=== PATIENT | male | born 1995 | race African-American/Black ===

== ENCOUNTER 2016-06-11 12:22 | Emergency (ER) | payer BC ==
[~2016-06-11] VITALS: Ht 172.7 cm; Wt 88.2 kg
[2016-06-11 12:24] VITALS: BP 106/69; PULSE 116; RESP 16; TEMP 102.8; O2SAT 98
--- NOTE | 2016-06-11 12:41 | PD ---
HPI Chief Complaint: ENT Complaint Time Seen by Provider: 12:40 Travel History International Travel<30 days: No Contact w/Intl Traveler<30days: No Traveled to known affect area: No History of Present Illness HPI 20-year-old male with history of asthma presents to the emergency department for evaluation of sore throat, fever, chills, body ache worsening over the last 3 days. Patient states that he started with a sore throat and had a headache. He took Tylenol and 600 mg of ibuprofen yesterday and that seemed to help with his fever. He was concerned because he woke up today and had a fever again. He has not taken any antipyretics today. No nausea or vomiting. No diarrhea. Intermittent cough that is nonproductive. No photophobia. No nuchal rigidity. No other symptoms to report at this time. [facility] Past Medical History Asthma: Yes Respiratory: Yes (ASTHMA) Social History Alcohol Use: No Tobacco Use: No Substance Use: No Allergies-Medications (Allergen,Severity, Reaction): Coded Allergies: No Known Allergies (Unverified , 06/11/16) Reported Meds & Prescriptions Reported Meds & Active Scripts Active No Active Prescriptions or Reported Medications Review of Systems Except as stated in HPI: all other systems reviewed are Neg Physical Exam Narrative GENERAL: Well-nourished male patient, ambulatory no acute distress SKIN: Warm and dry. HEAD: Atraumatic. Normocephalic. EYES: Pupils equal and round. No scleral icterus. No injection or drainage. ENT: No nasal bleeding or discharge. Drinks is moderate erythema, edema, without exudates. Airway is patent. Mucous membranes pink and moist. NECK: Trachea midline. No JVD. CARDIOVASCULAR: Tachycardic rate and rhythm. No murmur appreciated. RESPIRATORY: No accessory muscle use. Clear to auscultation. Breath sounds equal bilaterally. GASTROINTESTINAL: Abdomen soft, non-tender, nondistended. Hepatic and splenic margins not palpable. MUSCULOSKELETAL: No obvious deformities. No clubbing. No cyanosis. No edema. NEUROLOGICAL: Awake and alert. No obvious cranial nerve deficits. Motor grossly within normal limits. Normal speech. PSYCHIATRIC: Appropriate mood and affect; insight and judgment normal. Data Data Last Documented VS Vital Signs Date Time Temp Pulse Resp B/P Pulse Ox O2 Delivery O2 Flow Rate FiO2 06/11/16 12:57 118 18 06/11/16 12:24 102.8 106/69 98 Room Air Orders Acetaminophen (Tylenol) (06/11/16 12:45) Ibuprofen (Motrin) (06/11/16 12:45) Influenzae A/B Antigen (06/11/16 12:35) Group A Rapid Strep Screen (06/11/16 12:35) Complete Blood Count With Diff (06/11/16 12:58) Basic Metabolic Panel (Bmp) (06/11/16 12:58) Urinalysis - C+S If Indicated (06/11/16 12:58) Monoscreen (06/11/16 12:58) Strep Culture (Group A) (06/11/16 12:55) Labs Laboratory Tests Test 06/11/16 13:05 White Blood Count 6.4 TH/MM3 Red Blood Count 5.61 MIL/MM3 Hemoglobin 14.3 GM/DL Hematocrit 43.3 % Mean Corpuscular Volume 77.1 FL Mean Corpuscular Hemoglobin 25.5 PG Mean Corpuscular Hemoglobin 33.1 % Concent Red Cell Distribution Width 13.8 % Platelet Count 159 TH/MM3 Mean Platelet Volume 9.5 FL Neutrophils (%) (Auto) 76.0 % Lymphocytes (%) (Auto) 9.1 % Monocytes (%) (Auto) 13.9 % Eosinophils (%) (Auto) 0.4 % Basophils (%) (Auto) 0.6 % Neutrophils # (Auto) 4.8 TH/MM3 Lymphocytes # (Auto) 0.6 TH/MM3 Monocytes # (Auto) 0.9 TH/MM3 Eosinophils # (Auto) 0.0 TH/MM3 Basophils # (Auto) 0.0 TH/MM3 CBC Comment DIFF FINAL Differential Comment Urine Color YELLOW Urine Turbidity CLEAR Urine pH 6.0 Urine Specific [place] 1.032 Urine Protein 30 mg/dL Urine Glucose (UA) NEG mg/dL Urine Ketones TRACE mg/dL Urine Occult Blood SMALL Urine Nitrite NEG Urine Bilirubin NEG Urine Urobilinogen LESS THAN 2.0 MG/DL Urine Leukocyte Esterase NEG Urine RBC 11 /hpf Urine WBC 3 /hpf Urine Squamous Epithelial 1 /hpf Cells Urine Mucus MOD /lpf Microscopic Urinalysis Comment CULT NOT INDICATED Sodium Level 139 MEQ/L Potassium Level 3.5 MEQ/L Chloride Level 106 MEQ/L Carbon Dioxide Level 24.3 MEQ/L Anion Gap 9 MEQ/L Blood Urea Nitrogen 16 MG/DL Creatinine 1.33 MG/DL Estimat Glomerular Filtration 69 ML/MIN Rate Random Glucose 92 MG/DL Calcium Level 8.8 MG/DL Monoscreen NEG MDM Medical Decision Making Medical Screen Exam Complete: Yes Emergency Medical Condition: Yes Medical Record Reviewed: Yes Differential Diagnosis Influenza versus strep pharyngitis versus mono versus viral syndrome versus UTI versus sepsis Narrative Course 20-year-old male presents to emergency department for evaluation. Patient is febrile here. He is given Tylenol and ibuprofen here in emergency department. Workup was initiated. Once a medical bed becomes febrile, patient will be transferred and care assumed by that provider. 1455 patient's results are positive for influenza A. Patient's CBC is without acute concern. BMP is with mildly elevated creatinine. Urinalysis is with ketones. Repeat heart rate is 88 and oral temperature is 98.6. I have encouraged patient to maintain adequate oral hydration. Patient will be discharged to follow-up primary care provider. He is provided a school note. He agrees to return immediately with any acute worsening of symptoms. Diagnosis Primary Impression: Influenza A Referrals: Primary Care Physician Patient Instructions: General Instructions, Influenza (DC) Departure Forms: School Release, Return to School Date: Jun 16, 2016 Tests/Procedures, Work Release Additional Instructions: Rest Maintain adequate oral hydration Follow-up with primary care provider Tylenol or ibuprofen as directed on the package as needed for fever and/or pain. Dose of one of them may be taken at 7 PM Return immediately to the emergency department with any acute worsening of symptoms Med/Other Pt SpecificInfo: Prescription(s) given Scripts No Active Prescriptions or Reported Meds Disposition: 01 DISCHARGE HOME Condition: Stable Manda Valerio Jun 11, 2016 12:40
[2016-06-11] MEDS ORDERED: IBUPROFEN 800 MG TAB PO ONE (12:45)
[2016-06-11] MEDS ORDERED: ACETAMINOPHEN 325 MG TAB PO ONE (12:45)
[2016-06-11 13:27] LABS: AUTOMATED NEUTROPHIL # 4.8 TH/MM3 (1.8-7.7); BASOPHIL % 0.6 % (0.0-2.0); EOSINOPHIL % 0.4 % (0.0-4.0); HEMATOCRIT 43.3 % (39.0-51.0); HEMO FLAGS DIFF FINAL; LYMPH % 9.1 % (9.0-44.0); LYMPHOCYTE # 0.6 TH/MM3 (1.0-4.8); MEAN CELL VOLUME 77.1 FL (80.0-100.0); MEAN CORPUSCULAR HEMOGLOBIN 25.5 PG (27.0-34.0); MEAN CORPUSCULAR HGB CONC 33.1 % (32.0-36.0); MONO % 13.9 % (0.0-8.0); PLATELET COUNT 159 TH/MM3 (150-450); RED BLOOD COUNT 5.61 MIL/MM3 (4.50-5.90); RED CELL DISTRIBUTION WIDTH 13.8 % (11.6-17.2); WHITE BLOOD COUNT 6.4 TH/MM3 (4.0-11.0)
[2016-06-11 13:38] LABS: BICARBONATE 24.3 MEQ/L (21.0-32.0); POTASSIUM 3.5 MEQ/L (3.5-5.1)
[2016-06-11 14:00] LABS: BLOOD, URINE SMALL (NEG); COMMENT (UR) CULT NOT INDICATED; CULTURE IF INDICATED CULT NOT INDICATED; GLUCOSE,URINE NEG (NEG); KETONE, URINE TRACE mg/dL (NEG); MUCUS URINE MOD /lpf (OCC); NITRITE,URINE NEG (NEG); SQUAMOUS EPITHELIAL CELL URINE 1 /hpf (0-5); URINE COLOR YELLOW (YELLW/STRAW)
[2016-06-11 14:59] VITALS: PULSE 88; RESP 20; TEMP 99.5; O2SAT 97
== END 2016-06-11 16:22 | disposition home or self-care (01) ==
LOC: NETRI 12:22
DX: J09.X2 Influenza due to identified novel influenza A virus with other respiratory manifestations (principal)
CPT/HCPCS: 80048; 81001; 85025; 86308; 87081; 87804; 87880; 99283

== ENCOUNTER 2017-03-06 14:14 | Emergency (ER) | payer BC ==
[~2017-03-06] VITALS: Ht 172.7 cm; Wt 80.0 kg
[2017-03-06 14:16] VITALS: BP 142/76; PULSE 72; RESP 12; TEMP 97.9; O2SAT 100
--- NOTE | 2017-03-06 18:58 | PD ---
HPI Chief Complaint: Complaint Time Seen by Provider: 18:32 Travel History International Travel<30 days: No Contact w/Intl Traveler<30days: No Traveled to known affect area: No History of Present Illness HPI 21-year-old male presents to emergency department complaining of a green-yellow discharge from his penis that started this morning. States that has been feeling ill and fatigued as well. Patient denies fevers chills, pain with ejaculation, and dysuria. States he did have an encounter with a sex worker approximately 1 month ago, this was unprotected. Patient reports that he has not had any other encounters since then. Patient has never had this problem before. He has not seen his primary care physician regarding this. He denies any other medical issues except asthma for which she uses albuterol inhalers upon exacerbation. [facility] Past Medical History Asthma: Yes Respiratory: Yes (ASTHMA) Past Surgical History Cholecystectomy: Yes Social History Alcohol Use: No Tobacco Use: No Substance Use: No Allergies-Medications (Allergen,Severity, Reaction): Coded Allergies: No Known Allergies (Unverified , 06/11/16) Reported Meds & Prescriptions Reported Meds & Active Scripts Active No Active Prescriptions or Reported Medications Review of Systems Except as stated in HPI: all other systems reviewed are Neg Physical Exam Narrative GENERAL: Well-nourished, well-developed patient. SKIN: Focused skin assessment warm/dry. HEAD: Normocephalic. EYES: No scleral icterus. No injection or drainage. NECK: Supple, trachea midline. No JVD or lymphadenopathy. CARDIOVASCULAR: Regular rate and rhythm without murmurs, gallops, or rubs. RESPIRATORY: Breath sounds equal bilaterally. No accessory muscle use. GASTROINTESTINAL: Abdomen soft, non-tender, nondistended. MUSCULOSKELETAL: No cyanosis, or edema. Genitourinary- deferred. No reports of lesions, masses, or deformities. BACK: Nontender without obvious deformity. No CVA tenderness. Data Data Last Documented VS Vital Signs Date Time Temp Pulse Resp B/P (MAP) Pulse Ox O2 Delivery O2 Flow Rate FiO2 03/06/17 14:16 97.9 72 12 142/76 (98) 100 Orders Orders Urinalysis - C+S If Indicated (03/06/17 18:32) Gc And Chlamydia Pcr (03/06/17 18:32) Ceftriaxone Inj (Rocephin Inj) (03/06/17 19:00) Azithromycin Powd Pack (Zithromax Powd P (03/06/17 19:00) Labs Laboratory Tests Test 03/06/17 19:15 [facility] Medical Decision Making Medical Screen Exam Complete: Yes Emergency Medical Condition: Yes Differential Diagnosis Chlamydia versus gonorrhea versus urinary tract infection versus urethritis Narrative Course 21-year-old male presents to emergency department complaining of a green-yellow discharge from his penis that started this morning. States that has been feeling ill and fatigued as well. Patient denies fevers chills, pain with ejaculation, and dysuria. States he did have an encounter with a sex worker approximately 1 month ago, this was unprotected. Patient reports that he has not had any other encounters since then. Patient has never had this problem before. He has not seen his primary care physician regarding this. He denies any other medical issues except asthma for which he uses albuterol inhalers upon exacerbation. Vital signs stable Physical exam limited secondary to patient reluctance to allow me to inspect History of physical consistent with a gonorrhea or chlamydial infection. We'll treat empirically for both. Pending GC chlamydia PCR. Patient understands he needs to go to the health department for further testing such as HIV, hepatitis. States he will comply. Diagnosis Primary Impression: Urethritis Referrals: [facility] Additional Instructions: Follow up with the health department for further treatment. Take medication as prescribed. Remain abstinent until you follow up with the Health Department Scripts No Active Prescriptions or Reported Meds Disposition: 01 DISCHARGE HOME Condition: Stable Katherine Felix Mar 06, 2017 18:58
[2017-03-06] MEDS ORDERED: AZITHROMYCIN PWD FOR SUSP 1 GM PACKET PO ONE (19:00)
[2017-03-06] MEDS ORDERED: cefTRIAXone 250 MG VIAL IM ONE (19:00)
[2017-03-06 19:41] LABS: BLOOD, URINE NEG (NEG); GLUCOSE,URINE NEG (NEG); KETONE, URINE NEG (NEG); NITRITE,URINE NEG (NEG); PH, URINE 6.5 (5.0-8.5); URINE COLOR YELLOW (YELLW/STRAW)
[2017-03-06 19:57] LABS: MUCUS URINE FEW /lpf (OCC); RBC, URINE 0-3 /hpf (0-3)
[2017-03-06 19:58] LABS: BACTERIA, URINE RARE /hpf; SQUAMOUS EPITHELIAL CELL URINE 0-5 /hpf (0-5)
[2017-03-06 19:59] LABS: COMMENT (UR) CULTURE INDICATED; CULTURE IF INDICATED CULTURE INDICATED
[2017-03-07 04:54] LABS: CHLAMYDIA PCR NOT DETECTED (NOT DETECT); NEISSERIA PCR NOT DETECTED (NOT DETECT)
== END 2017-03-06 19:50 | disposition home or self-care (01) ==
LOC: NEPK 14:14
DX: N34.2 Other urethritis (principal)
CPT/HCPCS: 81001; 87086; 87491; 87591; 96372; 99284; J0696